=== PATIENT | male | born 1950 | race Caucasian/White ===

== ENCOUNTER → 2016-12-21 | Outpatient (CLI) | payer SELFPAY ==
[2016-12-08 08:08] VITALS: BP 133/64
--- NOTE | 2016-12-21 17:58 | VAS ---
HISTORY: Peripheral vascular disease Study: Bilateral lower extremity arterial pressure and waveform analysis Comparison: None Findings: Segmental pressure and waveform analysis of the right and left lower extremity were obtained from th e common femoral artery to tibial vasculature before and after exercise. Segmental pressures were o bserved before after exercise demonstrating a pressure decrease after exercise that did not fully re cover after 8 min. Segmental pressure in the right dorsalis pedis was 121 before exercise and [address] exercise. Segmental pressure in the left dorsalis pedis was 119 before exercise and 104 after ex ercise. Ankle brachial indices are abnormal bilaterally from the calves to the ankles. An VERÓNICA of 0.7 2 is observed on the right. VERÓNICA of 0.75 is observed on the left. IMPRESSION: 1. Diminished bilateral segmental pressures after exercise and decrease bilateral ABIs measuring 0.7 2 on the right and 0.75 on the left compatible with moderate arterial disease. Reported By:
== END ==
LOC: RAD 13:47
PROVIDERS: ATTEND Internal Medicine
DX: I73.89 Other specified peripheral vascular diseases (principal)
CPT/HCPCS: 93922

== ENCOUNTER → 2016-12-22 | Outpatient (CLI) | payer SELFPAY ==
[2016-12-08 08:08] VITALS: BP 133/64
--- NOTE | 2016-12-22 12:24 | NM ---
HISTORY: Abdominal pain. Study: Nuclear medicine HIDA scan with ejection fraction. Comparison: Gallbladder ultrasound dated December 07, 2016. Technique: Multiple scintigraphic images of the abdomen were obtained after the intravenous administ ration of 5.5 mCi of technetium labeled Choletec. Following distention of the gallbladder with radiotracer, 8 oz of Ensure Plus was given as a fatty m eal. An estimated gallbladder ejection fraction was calculated based on the physiologic response to this meal. Findings: Homogeneous uptake of radiotracer is seen throughout the liver. The intrahepatic biliary ductal sys tem is observed normally. The common hepatic and common bile duct are grossly unremarkable with nor mal biliary-bowel transit. The gallbladder is observed to fill normally. After the administration of a fatty meal, a normal gallbladder ejection fraction of 43% (normal > 35 %) is observed. The percentage per minute is 1.6%. IMPRESSION: 1. Normal hepatobiliary imaging scan. 2. Normal gallbladder ejection fraction. Reported By:
== END ==
LOC: RAD 09:03
PROVIDERS: ATTEND Internal Medicine
DX: R10.84 Generalized abdominal pain (principal)
CPT/HCPCS: 78227